=== PATIENT | male | born 1990 | race African-American/Black ===

== ENCOUNTER 2021-05-11 16:48 | Emergency (ER) | payer MEDICARE ==
[~2021-05-11] VITALS: Ht 177.8 cm; Wt 77.0 kg
[2021-05-11 16:48] VITALS: BP 124/76
[2021-05-11] MEDS ORDERED: HYDROcodone/APAP 5/325MG 1 TAB TABLET PO ONE (17:45)
[2021-05-11] MEDS ORDERED: HYDR-2155 PO (17:56)
[2021-05-11] MEDS ORDERED: PENI500T PO (17:56)
--- NOTE | 2021-05-11 18:01 | PHYS DOC ---
Past History Past Surgical History: No Surgical History (DAYO GUZMAN APRN) Alcohol Use: Occasionally (DAYO GUZMAN APRN) General Adult EDM: Chief Complaint: MEDICATION REFILL HPI: HPI: Patient is a 30-year-old male who presents to the emergency department today for left knee pain/swelling and dental pain. Patient reports that he injured his knee a 2 to 3 months ago and was seen at [facility] where he had imaging done. He reports that he did get discharged with pain medication but he lives in [place] where he helped his aunt move. He rates his pain 8 out of 10. He reports has been taking [id number] pain medication without any relief. He denies any new injuries. He denies any decreased sensation, fevers, or decreased range of motion. He is able to bear weight and ambulate. Patient is reporting dental pain also he reports that he has multiple areas of broken teeth and today he broke the left upper tooth. (DAYO GUZMAN APRN) Review of Systems: Review of Systems: Constitutional: See HPI HENT: See HPI Musculoskeletal: See HPI Integument: See HPI Neurologic: See HPI (DAYO GUZMAN APRN) Allergies: Allergies: Allergies Coded Allergies Type Severity Reaction Last Updated Verified No Known Drug Allergies 05/11/21 No (DAYO GUZMAN APRN) Physical Exam: PE: Constitutional: Well developed, well nourished, no acute distress, non-toxic appearance. [] HENT: Normocephalic, atraumatic, bilateral external ears normal, oropharynx moist, no oral exudates, several broken teeth noted throughout mouth with dental caries, uvula midline, no trismus, no phonation changes nose normal. [] Eyes: PERRL, EOMI, conjunctiva normal, no discharge. [] Neck: Normal range of motion, no stridor Cardiovascular: Normal peripheral perfusion Lungs & Thorax: Normal work of breathing, no tachypnea Abdomen: Soft and flat Skin: Warm, dry, no erythema, no rash. [] Back: Normal range of motion Extremities: No tenderness, no cyanosis, no clubbing, ROM intact, no edema. [] Left knee: Swelling noted to anterior aspect of left knee, pain with palpation to medial aspect of left knee, no obvious deformity, no open wounds, range of motion intact, neuro intact Neurologic: Alert and oriented X 3, normal motor function, normal sensory function, no focal deficits noted. [] Psychologic: Affect normal, judgement normal, mood normal. [] (DAYO GUZMAN APRN) Current Patient Data: Vital Signs: Vital Signs Date Time Temp Pulse Resp B/P (MAP) Pulse Ox O2 Delivery O2 Flow Rate FiO2 05/11/21 16:48 88 124/76 (92) 100 05/11/21 16:48 16 Room Air (DAYO GUZMAN APRN) EKG: EKG: [] (DAYO GUZMAN APRN) Radiology/Procedures: Radiology/Procedures: [] (DAYO GUZMAN APRN) Heart Score: C/O Chest Pain: N/A Risk Factors: Risk Factors: DM, Current or recent (<one month) smoker, HTN, HLP, family history of CAD, obesity. Risk Scores: Score 0 - 3: 2.5% MACE over next 6 weeks - Discharge Home Score 4 - 6: 20.3% MACE over next 6 weeks - Admit for Clinical Observation Score 7 - 10: 72.7% MACE over next 6 weeks - Early Invasive Strategies (DAYO GUZMAN APRN) Course & Med Decision Making: Course & Med Decision Making Pertinent Labs and Imaging studies reviewed. (See chart for details) [] Patient presents to the emergency department for left knee and dental pain. Left knee is swollen and painful with palpation. Patient is advised to take ibuprofen or naproxen for mild pain, discharged with pain medication, Lucio wrap applied. Educated on rice protocol. To help with dental pain, patient was discharged with pain medication. Patient has numerous areas of broken teeth and dental caries, he is prescribed antibiotic. Advised to follow-up with the dentist. I discussed with patient all findings and diagnostic testing as well as the need to follow-up with PCP for further evaluation and treatment or return to the ER if any new or worsening symptoms. Strict return precautions were also discussed at length. Patient voiced understanding and agreement with the plan. Patient is hemodynamically stable at the time of disposition. (DAYO GUZMAN APRN) Course & Med Decision Making Did not see or evaluate patient. Did not discuss patient with SERVICE OBSERVER. Agree with SERVICE OBSERVER's work-up and disposition per note (SERGIO RHODES MD) [place] Disclaimer: Dragon Disclaimer: This electronic medical record was generated, in whole or in part, using a voice recognition dictation system. (DAYO GUZMAN APRN) Departure Departure: Impression: Primary Impression: Knee pain Qualified Codes: M25.562 - Pain in left knee; G89.29 - Other chronic pain Additional Impression: Pain, dental Disposition: HOME / SELF CARE / HOMELESS Condition: GOOD Referrals: PCP,NO (PCP) Patient Instructions: Dental Pain, RICE - Routine Care for Injuries Additional Instructions: You are seen in the emergency department for left knee pain. I reviewed the imaging from your visit at [facility] did not show any acute findings. Your symptoms may be improved by something called the rice protocol. This is rest, ice, compression, elevation. Please follow-up when doing intense exercises that may make the pain worse. Sometimes gentle stretching can provide relief, but be careful to injury. It is important to perform gentle range of motion exercises to prevent stiff joints and chronic pain. Use ice packs over the affected areas to help decrease your pain. For the first 24 hours you can apply ice 20 minutes on 20 minutes off for 4 times per day. Ken etimes compression such as the use of an Lucio wrap can help with the swelling. You may also elevate the affected area to help with the swelling. For your pain take ibuprofen or naproxen, for your severe pain you can take [place], this is Tylenol and hydrocodone with combination tablet, do not take any additional Tylenol with this medication. This medication may cause drowsiness so do not take need to be alert, driving a vehicle or with alcohol. This will also help with your dental pain. You are also being discharged home with an antibiotic, take this completely. You will need to see a dentist. Follow-up with your primary care provider tomorrow regarding your ER visit. Return to the emergency department if you develop intractable nausea vomiting, high fevers refractory to treatment, inability to bear weight or ambulate, decreased sensation in extremity or decreased range of motion. Scripts Penicillin V Potassium (PENICILLIN V POTASSIUM) 500 Mg Tablet 1 TAB PO QID for dental infection for 7 Days, #28 TAB 0 Refills Prov: DAYO GUZMAN APRN 05/11/21 Hydrocodone Bit/Acetaminophen (HYDROCODONE-APAP 5-325 ) 1 Each Tablet 1 TAB PO PRN Q6HRS PRN for PAIN for 2 Days, #8 TAB 0 Refills Prov: DAYO GUZMAN APRN 05/11/21 DAYO GUZMAN APRN May 11, 2021 18:01 SERGIO RHODES MD May 11, 2021 18:17
== END 2021-05-11 18:13 | disposition home or self-care (01) ==
LOC: ER 16:48
DX: M25.562 Pain in left knee (principal); G89.29 Other chronic pain; K02.9 Dental caries, unspecified; R22.32 Localized swelling, mass and lump, left upper limb
CPT/HCPCS: 99283